=== PATIENT | female | born 1960 | race Caucasian/White ===

== ENCOUNTER 2021-04-03 18:11 | Emergency (ER) | payer OTHER ==
[~2021-04-03 18:11] MED LIST: MAALOX ADVANCE355 ML PO; NEURONTIN300 MG PO; OXYCODONE HCL5 MG PO; SPIRIVA HANDIH18 MCG INH; SPIRIVA18 MCG INH; TAGAMET 400 MG400 MG PO
[2021-04-03 20:14] LABS: HEMOGLOBIN 14.7 gm/dl (12.3-15.3); RED BLOOD COUNT 4.81 M/UL (4.00-5.10); WHITE BLOOD COUNT 5.1 K/UL (4.5-11.0)
[2021-04-03 20:39] LABS: BUN/CREATININE RATIO 15 (0-10)
[2021-04-04] MEDS ORDERED: ATIVAN1 MG PO (01:48)
== END 2021-04-04 02:12 | disposition home or self-care (01) ==
LOC: ER1 18:11
PROVIDERS: Family Medicine
DX: R56.9 Unspecified convulsions (principal); K74.60 Unspecified cirrhosis of liver; D69.6 Thrombocytopenia, unspecified; F12.90 Cannabis use, unspecified, uncomplicated; Z88.2 Allergy status to sulfonamides; F17.200 Nicotine dependence, unspecified, uncomplicated
CPT/HCPCS: 70450; 80053; 80307; 81001; 85025; 93005; 96374; 99284; J2060

== ENCOUNTER → 2021-05-24 | Outpatient (CLI) | payer OTHER ==
[~2021-05-24] MED LIST changes: +ATIVAN1 MG PO
== END ==
LOC: US 05-21 08:30 → KOH-I 05-21 08:30 → US 08:30
DX: K72.90 Hepatic failure, unspecified without coma (principal); K80.20 Calculus of gallbladder without cholecystitis without obstruction
CPT/HCPCS: 76705

== ENCOUNTER → 2021-05-31 | Outpatient (CLI) | payer OTHER | LOC: MRI 13:36 | DX: K83.8 Other specified diseases of biliary tract (principal); K74.60 Unspecified cirrhosis of liver; K72.90 Hepatic failure, unspecified without coma; B18.2 Chronic viral hepatitis C; R74.8 Abnormal levels of other serum enzymes | CPT/HCPCS: 74181 ==

== ENCOUNTER → 2022-05-02 | Outpatient (CLI) | payer OTHER ==
[2022-05-02 08:33] LABS: BUN/CREATININE RATIO 17 (0-10)
== END ==
LOC: US 07:41
PROVIDERS: Internal Medicine Gastroenterology
DX: K70.31 Alcoholic cirrhosis of liver with ascites (principal); K72.90 Hepatic failure, unspecified without coma
CPT/HCPCS: 36415; 76705; 80048; 80076; 85610